=== PATIENT | female | born 1990 | race Caucasian/White ===

== ENCOUNTER 2019-03-31 12:37 | Emergency (ER) | payer OTHER ==
[~2019-03-31] VITALS: Ht 157.5 cm; Wt 51.4 kg
[2019-03-31 13:27] LABS: BASO % 0.1 % (0.0-1.0); EOS # 0.1 10^3/uL (0.0-0.5); EOS % 0.9 % (0.0-3.0); HEMATOCRIT 36.6 % (36.0-47.0); HEMOGLOBIN 11.6 g/dl (12.0-15.5); LYMPH # 1.8 10^3/uL (1.5-5.0); LYMPH % 17.2 % (24.0-44.0); MEAN CORPUSCULAR HEMOGLOBIN 31.4 pg (27.0-33.0); MEAN CORPUSCULAR HGB CONC 31.7 g/dl (32.0-36.5); MEAN CORPUSCULAR VOLUME 98.9 fl (80.0-96.0); MONO # 0.3 10^3/uL (0.0-0.8); MONO % 2.7 % (0.0-5.0); NEUTROPHILS % 78.6 % (36.0-66.0); PLATELET COUNT, AUTOMATED 200 10^3/uL (150-450); WHITE BLOOD COUNT 10.2 10^3/uL (4.0-10.0)
[2019-03-31 13:50] LABS: ALBUMIN 3.7 GM/DL (3.2-5.2); ALT/SGPT 30 U/L (12-78); BILIRUBIN,DIRECT 0.2 MG/DL (0.0-0.2); BILIRUBIN,TOTAL 0.7 MG/DL (0.2-1.0); BLOOD UREA NITROGEN 7 MG/DL (7-18); CALCIUM LEVEL 8.6 MG/DL (8.5-10.1); CARBON DIOXIDE LEVEL 31 MEQ/L (21-32); CHLORIDE LEVEL 105 MEQ/L (98-107); CREATININE FOR GFR 0.63 MG/DL (0.55-1.30); GLOMERULAR FILTRATION RATE > 60.0 (>60); GLUCOSE, FASTING 80 MG/DL (70-100); LIPASE 111 U/L (73-393); SODIUM LEVEL 140 MEQ/L (136-145); TOTAL PROTEIN 7.3 GM/DL (6.4-8.2)
[2019-03-31 13:54] LABS: HCG, SERUM QUALITATIVE NEGATIVE (NEGATIVE)
[2019-03-31] MEDS ORDERED: IBUPROFEN 800 MG TAB PO ONE (14:30)
--- NOTE | 2019-03-31 16:35 | REP ---
Pelvic ultrasound for pelvic pain: The studies performed transabdominal, endovaginal and Doppler ultrasound assessment: The bladder is adequately distended. There is diffuse bladder wall thickening, nonspecific, possibly cystitis although neoplasm cannot be excluded. The uterus is retroverted and normal size measuring 6.5 x 3.6 x 4.6 cm. The endometrium is not thickened measuring 2.2 mm. Right ovary: The right ovary measures 2.7 x 1.6 cm and is normal size. There is no dominant mass or cyst. There is vascular flow with the Doppler resistive index in the parenchymal arteries measuring 0.49. Left ovary: The left ovary measures 4.4 x 2.2 x 2.4 cm. There is a complex cyst measuring 1.8 cm. There is vascular flow with the Doppler resistive index of the parenchymal arteries measuring 0.48. There is a trace of free fluid in the cul-de-sac. Impression: There is a 1.8 cm complex left ovarian cyst. No free fluid in the pelvis. Diffuse bladder wall thickening, compatible with cystitis. Neoplasm is considered less likely. There is vascular flow in both ovaries. Electronically Signed by Roc Mosquera MD 03/31/2019 04:26 P
[2019-03-31 16:39] LABS: CHLAMYDIA DNA AMPLIFICATION POSITIVE (NEGATIVE); GC DNA AMPLIFICATION NEGATIVE (NEGATIVE)
[2019-03-31 16:43] VITALS: BP 108/73
[2019-03-31] MEDS ORDERED: BACT800T5 PO (16:53)
[2019-03-31] MEDS ORDERED: IBUP-1022 PO (16:53)
[2019-03-31] MEDS ORDERED: AZITHROMYCIN 250 MG TAB PO ONE (17:00)
--- NOTE | 2019-04-02 09:07 | ED PDOC ---
Post-Departure Follow-Up ft randolph olvera and dr shirley faxed formal report of pelvic us for fu Wally Munoz MD Apr 02, 2019 09:07
== END 2019-03-31 17:12 | disposition home or self-care (01) ==
LOC: M ED 12:37
DX: N83.202 Unspecified ovarian cyst, left side (principal); N30.00 Acute cystitis without hematuria; A74.9 Chlamydial infection, unspecified; F17.210 Nicotine dependence, cigarettes, uncomplicated

== ENCOUNTER 2019-08-15 13:01 | Emergency (ER) | payer OTHER ==
[~2019-08-15] VITALS: Ht 157.5 cm; Wt 55.0 kg
[~2019-08-15 13:01] MED LIST: BACT800T5 PO; IBUP-1022 PO
[2019-08-15 13:02] VITALS: BP 131/87
[2019-08-15] MEDS ORDERED: BCP (13:08)
[2019-08-15] MEDS ORDERED: GIAN1TAB PO (13:24)
[2019-08-15] MEDS ORDERED: OMEP-218 PO (14:28)
[2019-08-15] MEDS ORDERED: OMEPRAZOLE 20 MG CAP PO ONE (14:30)
== END 2019-08-15 14:33 | disposition home or self-care (01) ==
LOC: M ED 13:01
DX: K21.9 Gastro-esophageal reflux disease without esophagitis (principal); F17.200 Nicotine dependence, unspecified, uncomplicated